=== PATIENT | male | born 1960 | race African-American/Black ===

== ENCOUNTER 2016-12-13 05:59 | Observation (INO) | payer MEDICARE, OTHER ==
--- NOTE | ~2016-12-13 | HP ---
History And Physical [address] [place]. [address] NAME: CHRISTIE WEINSTEIN : 56 STATUS : ADM Anthony PAT#: [id number] AGE: 56 ADM/REG DATE : 12/13/16 MR#: [id number] REPORT SERV DATE: 12/13/16 DICTATED BY: DANY MORALES DATE: 12/13/16 REPORT STATUS : Draft TRANSCRIBED BY: MODL DATE: 12/13/16 DATE OF ADMISSION: 12/13/2016 REASON FOR ADMISSION: COPD, acute exacerbation. HISTORY OF PRESENT ILLNESS: This is a 56-year-old black male, who had increasing coughing and wheezing. He has had rhonchi and unable to handle mucus with increasing shortness of breath over the last two days. He presented to the emergency room, where he was evaluated by Dr. Dillard. Dr. Dillard found evidence of bronchitis, but negative for flu. The patient had fever and chills two days ago, but has had none since that time. He is coughing clears material out. He was short of breath and hypoxemic initially on BiPAP, now off BiPAP with an arterial blood gas showing 7.4, 234, and 104. The patient had been dismissed from the emergency room in the past and had to come back, was ventilated in the past because of respiratory failure apparently. Old records are ordered. He does have some COPD. He quit smoking three years ago. Chest x-ray is not available for review at this point yet. The patient is admitted for observation. 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 , doing supply line. He has had a back injury, left knee surgery, and right shoulder surgery for this in the past, also has Strickland rods in the back as well. He is followed by the [place] doctor Kian previously, also primary care physician Dr. Chloe Bonilla. He does have a history of diabetes, on insulin for this. He has longstanding history of COPD and is on aerosols for this as well. HOME MEDICATIONS: Include the following: Mucinex 1 p.o. b.i.d., [place]rick 10/325 one p.o. q.6 hours p.r.n. pain, Vistaril 25 mg p.o. q.6 hours, ibuprofen 800 mg p.o. with meals three times a day, NovoLog FlexPen 10 units subcu before meals t.i.d., Levemir 30 units subcu b.i.d., Centrum vitamin 1 a day, Prilosec 20 mg p.o. b.i.d., paroxetine 30 mg p.o. daily, Xanax 0.5 mg p.o. three times a day p.r.n. anxiety, Norvasc 5 mg p.o. daily, aspirin 81 mg p.o. daily, atorvastatin 20 mg p.o. at bedtime, Symbicort 160/4.5 one puff b.i.d., cyclobenzaprine 10 mg p.o. b.i.d., docusate sodium 100 mg p.o. at bedtime, Neurontin 600 mg p.o. b.i.d., Minipress 12 mg p.o. at bedtime, sodium chloride ophthalmic daily for dry eyes and p.r.n., Spiriva once a day, trazodone 150 mg p.o. at bedtime. SOCIAL HISTORY: He is , lives with , for sixteen years. He quit smoking three years ago. 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 He does not take any alcohol, has quit tobacco. FAMILY HISTORY: He has three children, all of whom alive and well, two brothers, two sisters, diabetes runs in the family. His mother with cancer of the bone, . Father of a ruptured appendix and uncle with ruptured appendix. History And Physical [address] [address] NAME: CHRISTIE WEINSTEIN : 56 STATUS : ADM Anthony PAT#: [id number] AGE: 56 ADM/REG DATE : 12/13/16 MR#: [id number] REPORT SERV DATE: 12/13/16 DICTATED BY: DANY MORALES DATE: 12/13/16 REPORT STATUS : Draft TRANSCRIBED BY: NAZIA DATE: 12/13/16 REVIEW OF SYSTEMS: He has cough, productive of clear sputum, non colored. He has had increasing shortness of breath. He has had no melena, hematemesis, fits, seizures, convulsions, unilateral weakness, nausea, vomiting, or diarrhea. He has had weight gain since his hospitalization after the [employer] stent. He has had no swelling in lower extremities, stasis changes of the lower extremities. No leg ulcers. The remainder of the review of systems is negative except as outlined above in the history and physical. PHYSICAL EXAMINATION: VITAL SIGNS: Blood pressure was 140/80 with a heart rate of 88, respiratory rate 16, afebrile. HEENT: EOMI. Sclerae, clear. Conjunctivae, pink. NECK: No bruit without any JVD. CHEST: Coarse wheezes and rhonchi throughout both lung [place]. HEART: Regular S1, S2 without murmur, gallop, or click. ABDOMEN: Soft, nontender, obese, protuberant, no masses felt. EXTREMITIES: Have no edema. Distal pulses are palpable through the dorsalis pedis and posterior tibial. NEUROLOGIC: His DTRs were listed with knees. Parachute Inspector is equal and symmetric. There is no tremor. [id number] is intact. Speech is cogent and goal directed. LYMPHATICS: There is no adenopathy palpable. RECTAL: Deferred. SKIN: Without rash, ecchymosis, bruising, or stasis changes of lower extremities. LABORATORY DATA: The wrist, two views was done and showed mild osteoarthritis with no fractures. Arterial blood gas, 7.4, 235, and 107 done on an inspired FiO2 of 44%. The hemoglobin was 15.6, hematocrit 45.2, platelets 304. White count 4500 and the CMP showed a sodium of 139, potassium 3.9, creatinine 1.1, BUN 16, glucose 111. The total protein was 79 with a globulin of 4.2, total bilirubin is 1.3 with normal liver function tests with a troponin level of 0.02. The BNP was less than 2. His flu screen was negative. ASSESSMENT: 1. Acute exacerbation of chronic obstructive pulmonary disease with cough, recent upper respiratory tract infection, likely viral, but none flu. We will continue the aerosol treatments. Add low dose of prednisone for few doses. 2. Diabetes type 2. May be exacerbated by the use of prednisone. The patient was given IV Solu-Medrol in the emergency room of 125 mg. We will add sliding scale back. 3. Degenerative joint disease, knee, shoulder, wrist. 4. History of vertigo, hospitalized 3 years ago with a prolonged problem with weakness and vertigo after what sounds like a respiratory failure with ventilation of vent. Review of old records indicates the patient does have a history of obstructive sleep apnea, chronic pain, on narcotic medications as listed above, post traumatic stress disorder History And Physical [address] [address] NAME: CHRISTIE WEINSTEIN : 56 STATUS : ADM Anthony PAT#: [id number] AGE: 56 ADM/REG DATE : 12/13/16 MR#: [id number] REPORT SERV DATE: 12/13/16 DICTATED BY: DANY MORALES DATE: 12/13/16 REPORT STATUS : Draft TRANSCRIBED BY: NAZIA DATE: 12/13/16 with generalized anxiety, history of arachnoid cyst, history of coronary artery disease, on cardiac catheterization on 12/18/2013, and longstanding history of obstructive pulmonary disease. He has had multiple episodes of chronic obstructive pulmonary disease exacerbation in the past with generally stable recovery. He has been seen previously by Dr. Keyes. 5. History of post traumatic stress disorder and anxiety. 6. History of obstructive sleep apnea. PLAN: Aerosols, oral medications, feed, ambulate, watch blood sugars because of steroids have been given. The patient is admitted to observation with the intention of discharge within 24 hours. QING/NAZIA Dany Morales M.D. / [id number] CC: Edison Sun Jr, MD Monique Golding, M.D.
--- NOTE | ~2016-12-13 | DS ---
Discharge Summary [id number] [place]. [address] NAME: CHRISTIE WEINSTEIN : 56 STATUS : DIS Anthony PAT#: [id number] AGE: 56 ADM/REG DATE : 12/13/16 MR#: [id number] REPORT SERV DATE: 12/14/16 DICTATED BY: JR. SUN WILLIAM JOHN DATE: 12/13/16 REPORT STATUS : Draft TRANSCRIBED BY: NAZIA DATE: 12/13/16 ADMISSION DATE: 12/13/2016 DISCHARGE DATE: 12/13/2016 DISCHARGE DIAGNOSES: 1. Chronic obstructive pulmonary disease exacerbation. 2. Diabetes mellitus type 2. 3. Degenerative joint disease. 4. History of vertigo. OPERATIONS/PROCEDURES AND TREATMENTS: Include chest x-ray done 12/13/2016, which showed shallow inspiration without acute cardiopulmonary process. DISCHARGE MEDICATIONS: Include: 1. Norvasc 5 mg orally daily. 2. Aspirin 81 mg orally daily. 3. Lipitor 20 mg orally daily. 4. Flexeril 10 mg orally twice a day. 5. Colace 100 mg orally at bedtime. 6. Neurontin 600 mg orally twice a day. 7. Guaifenesin 600 mg every 12 hours. 8. Ibuprofen 400 mg orally with meals. 9. Levemir insulin 30 units twice a day. 10.Humalog insulin 10 units with meals. 11.Prilosec 20 mg daily. 12.Paxil 30 mg daily. 13.Trazodone 150 mg at bedtime. 14.Spiriva two puffs daily. 15.Symbicort one puff twice a day. 16.Multivitamin one tablet orally daily. 17.Prazosin 12 mg orally at bedtime. 18.Vistaril 25 mg every six hours as needed. 19.Xanax 0.5 mg t.i.d. p.r.n. 20.[place] 10/325 q.6 hours p.r.n. HOSPITAL COURSE: The patient is a 56-year-old white male, who presented to the emergency room with several day history of shortness of breath. He was seen and examined by Dr. Reyes and felt to have COPD exacerbation. He was given symptomatic treatment with bronchodilators, anticholinergic, and inhaled steroids. The patient was felt to be appropriate for 24-hour observation, but was given the option by Dr. Reyes to be discharged home straight from the emergency room. The patient choose to be observed, however, upon arrival to the clinical floor, the patient realized that his daughter is having surgery tomorrow and he very much wants to be there. He therefore desires discharge this evening. On my exam, the patient is stable. He uses no accessary muscles. He is saturating 98% on home oxygen use. We agreed to observe him through 7 p.m. tonight and if his oxygen requirement has not change and the patient is ambulatory, he will be discharged Discharge Summary [address] [address] NAME: CHRISTIE WEINSTEIN : 56 STATUS : DIS Anthony PAT#: [id number] AGE: 56 ADM/REG DATE : 12/13/16 MR#: [id number] REPORT SERV DATE: 12/14/16 DICTATED BY: JR. SUN WILLIAM JOHN DATE: 12/13/16 REPORT STATUS : Draft TRANSCRIBED BY: NAZIA DATE: 12/13/16 home tonight. For discharge exam and laboratory, please see daily progress note. DISCHARGE DIET: ADA. DISCHARGE ACTIVITY: Ad gloria. FOLLOWUP: With primary care physician, Dr. Chloe Bonilla in two to four weeks. WEDWIGE/NAZIA Edison Sun Jr, MD / [id number] CC: Edison Sun Jr, MD Monique Golding, M.D.
[2016-12-13 04:59] LABS: BE (BASE EXCESS) -1.6 MEQ/L (0 +/- 2.5); CARBOXYHEMOGLOBIN 0.7 % (0-3); INSTRUMENT SERIAL # 8087; METHEMOGLOBIN 0.3 % (0-3); PCO2 (CO2 TENSION) 35 MMHG (35-45); PO2 (O2 TENSION) 107 MMHG (79-93); pH 7.42 (7.37-7.43)
[2016-12-13 05:00] LABS: ALLENS TEST Pos; DEVICE NC; HEMOBLOGIN CONTENT 15.9 G/DL (14-18); O2 CONTENT 21.8 VOL% (18-24); OPERATOR ID 17589; SAMPLE Arterial
[2016-12-13 05:30] LABS: BASOPHILS 0.9 %; BASOPHILS ABSOLUTE 0.04 10/3/uL (0.0-0.16); EOSINOPHILS ABSOLUTE 0.36 10/3/uL (0.0-0.53); IMMATURE GRANULOCYTES 0.2 %; IMMATURE GRANULOCYTES ABSOLUTE 0.01 10/3/uL (0.0-0.11); LYMPHOCYTES 49.8 %; LYMPHOCYTES ABSOLUTE 2.24 10/3/uL (0.67-4.30); MEAN CORPUS HGB CONC 34.5 g/dL (32.0-36.0); MEAN CORPUSCULAR VOLUME 86.9 fL (80-100); MEAN PLATELET VOLUME 9.4 fL (9.2-13.0); MONOCYTES 12.4 %; MONOCYTES ABSOLUTE 0.56 10/3/uL (0.21-1.20); NEUTROPHILS 28.7 %; NEUTROPHILS ABSOLUTE 1.29 10/3/uL (2.02-8.40); PLATELET COUNT 304 10/3/uL (150-400); RBC DISTRIBUTION WIDTH 12.4 % (12.0-16.0)
[2016-12-13 05:36] LABS: ER CBC TAT 0 Hrs 12 Mins; HEMATOCRIT 45.2 % (40.0-51.0); HEMOGLOBIN 15.6 g/dL (13.6-17.8); MANUAL DIFF NO %; WHITE BLOOD CELLS 4.5 10/3/uL (4.5-10.5)
[2016-12-13 05:42] LABS: PARTIAL THROMBO TIME 30.3 SEC (22.5-37.2); PROTIME (NOT ORD) 12.8 SEC (12.0-14.5)
[2016-12-13 05:48] LABS: ALBUMIN 3.7 G/DL (3.5-5.0); CALCIUM, SERUM 8.6 MG/DL (8.5-10.4); CHLORIDE, SERUM 103 MMOL/L (96-112); GFR AFRICAN AMERICAN 85 ML/MIN (>=60); GFR NON AFRICAN AMERICAN 74 ML/MIN (>=60); POTASSIUM, SERUM 3.9 MMOL/L (3.5-5.3); SGOT(AST) 19 U/L (5-40); SGPT(ALT) 27 U/L (5-65); SODIUM, SERUM 139 MMOL/L (135-148); TROPONIN I <0.02 NG/ML (<0.05)
[2016-12-13 05:49] LABS: A/G RATIO 0.9 (0.7-1.9); ALKALINE PHOSPHATASE 88 U/L (45-117); BUN (BLOOD UREA NITROGEN) 16 MG/DL (6-23); CO2 (CARBON DIOXIDE) 24 MMOL/L (24-34); GLOBULIN 4.2 G/DL (2.5-4.1); GLUCOSE, SERUM 111 MG/DL (60-99); TOTAL BILIRUBIN 1.3 MG/DL (0-1.2); TOTAL PROTEIN 7.9 G/DL (6.0-8.5)
[~2016-12-13 05:59] MED LIST: *UNABLE3; ABX PO; ACID REFLEX MED; ALBUTEROL5 INH; ALTACHLORE OPH; ANXIETY MED; ASAB PO; ATV1 PO; B150 PO; CAT2; CENTRUM PO; COREG6 PO; D.O.S.100 MG PO; DALIRESP500 MCG PO; DELTADOSE; DSS PO; DULERA 200 MCG/13 GM INH; DUONEB INH; EFFEXOR XR150 MG PO; ETODOLAC400 MG OR; FLEX; FLEX PO; GLUCOPHAGE1000 MG PO; GLUCPH PO; IBU800 PO; IMDUR60 PO; L25 PO; LEVAQUIN750 MG PO; LEVEMFLXPN SC; LIPITOR10 PO; LIPITOR20 PO; LOP25 PO; LORT7 PO; LORTAB 5 PO; MEDROLPAK4 PO; MELA3 PO; MINIPRESS 2 MG C2 MG PO; MONODOX100 MG PO; MUCINEX600 MG; MUCINEX600 MG PO; MURO1282% OPH; MURO1285% OPH; NEUR300 PO; NEUR600 PO; NORCO1 TA2 PO; NORCO1 TAB PO; NORV5 PO; NOVOPEN; P10; P10 PO; P20 PO; PAX20 PO; PAXIL30 MG PO; PRILO PO; PRIN2.5 PO; PROAIR HFA INH; PROVENTSOL INH; PROVHFA INH; PTSD MED; REM15 PO; RX EYE DROPS; SELENIUM SHAMPOO TOP; SINGULAIR1 PO; SPIRIVA INH; SPIRIVA RESPIMAT INH; STERAPDS12; STEROID PO; SYMBICORT 160/41 INH INH; T PO; TESSALON200 MG PO; TRAZODONE150 MG PO; TYLENOL 8 HR650 MG PO; VIAGRA50 MG PO; VIB100 PO; VIST25 PO; VIST50 PO; X5 PO; ZOCOR40 PO
[2016-12-13 06:27] LABS: INFLUENZA A SCREEN NEGATIVE (NEGATIVE); INFLUENZA B SCREEN NEGATIVE (NEGATIVE)
== END 2016-12-13 19:10 | disposition home or self-care (01) ==
LOC: ER 05:59 → CDU1 09:07
PROVIDERS: Specialist
DX: J44.1 Chronic obstructive pulmonary disease with (acute) exacerbation (principal); E11.9 Type 2 diabetes mellitus without complications; M17.10 Unilateral primary osteoarthritis, unspecified knee; M19.019 Primary osteoarthritis, unspecified shoulder; M19.039 Primary osteoarthritis, unspecified wrist; F41.9 Anxiety disorder, unspecified; G47.33 Obstructive sleep apnea (adult) (pediatric); Z79.82 Long term (current) use of aspirin; Z79.899 Other long term (current) drug therapy
CPT/HCPCS: 36600; 71010; 80053; 82805; 82962; 83880; 84484; 85025; 85610; 85730; 87040; 87070; 87205; 87804; 93005; 94003; 94640; 94644; 94660; 96372; 96374; 96375; 99291; A9270-GY; G0378; J1956; J2930